=== PATIENT | female | born 1940 | race Caucasian/White ===

== ENCOUNTER 2018-03-28 21:13 | Inpatient (IN) | payer MEDICARE, OTHER ==
[2018-03-28 22:07] LABS: ADD MAN DIFF? NO
[2018-03-28 22:08] LABS: BASOPHILS % 0.2 % (0.0-2.0); EOSINOPHILS # 0.1 10^3/ul (0.0-0.5); EOSINOPHILS % 0.6 % (0.0-7.0); HEMATOCRIT 34.9 % (37.0-47.0); HEMOGLOBIN 11.8 g/dl (12.0-16.0); LYMPHOCYTES # 0.7 10^3/ul (0.8-2.9); MEAN CORPUSCULAR HEMOGLOBIN 33.1 pg (29.0-33.0); MEAN CORPUSCULAR HGB CONC 33.8 g/dl (32.0-37.0); MEAN PLATELET VOLUME 10.1 fl (7.4-10.4); MONOCYTE # 0.6 10^3/ul (0.3-0.9); MONOCYTES % 6.3 % (0.0-11.0); NEUTROPHIL # 7.6 10^3/ul (1.6-7.5); NEUTROPHILS % 84.3 % (39.0-77.0); PLATELET COUNT 193 10^3/UL (140-415); RED BLOOD COUNT 3.56 10^6/ul (4.20-5.40); RED CELL DISTRIBUTION WIDTH 12.1 % (11.5-14.5)
[2018-03-28 22:27] LABS: INR 1.13; PROTIME 14.6 Sec (11.9-14.9); PT RATIO 1.1
[2018-03-28 22:28] LABS: PARTIAL THROMBOPLASTIN TIME 32.1 Sec (23.0-35.0)
[2018-03-28 22:31] LABS: ALANINE AMINOTRANSFERASE 21 IU/L (13-69); ALBUMIN/GLOBULIN RATIO 1.29; ALKALINE PHOSPHATASE 68 IU/L (42-121); ANION GAP 10 (5-13); ASPARTATE AMINO TRANSFERASE 25 IU/L (15-46); BILIRUBIN,INDIRECT 0.3 mg/dl (0-1.1); BILIRUBIN,TOTAL 0.3 mg/dl (0.2-1.3); BLOOD UREA NITROGEN 26 mg/dl (7-20); CALCIUM 8.9 mg/dl (8.4-10.2); CARBON DIOXIDE 24 mmol/L (21-31); CHLORIDE 102 mmol/L (97-110); CREATININE 1.64 mg/dl (0.44-1.00); GLUCOSE 136 mg/dl (70-220); POTASSIUM 5.2 mmol/L (3.5-5.1); SODIUM 136 mmol/L (135-144); TOTAL PROTEIN 7.1 g/dl (6.1-8.1)
[2018-03-28 22:42] LABS: B-TYPE NATRIURETIC PEPTIDE 1200 PG/ML (0-450); TROPONIN-I 0.018 ng/ml (0.000-0.120)
[2018-03-29] MEDS ORDERED: ONDANSETRON 4 MG INJ IV
[2018-03-29 00:31] LABS: ADD UMIC YES; UR ASCORBIC ACID NEGATIVE (NEGATIVE); UR BACTERIA MODERATE /HPF (NONE SEEN); UR BILIRUBIN (Dip) NEGATIVE (NEGATIVE); UR BLOOD (Dip) 2+ mg/dL (NEGATIVE); UR CLARITY SLIGHTLY CLOUDY (CLEAR); UR COLOR YELLOW (YELLOW); UR GLUCOSE (Dip) NEGATIVE (NEGATIVE); UR KETONES (Dip) NEGATIVE (NEGATIVE); UR LEUKOCYTE ESTERASE (Dip) 1+ Leu/ul (NEGATIVE); UR MUCUS FEW /HPF (NONE SEEN); UR NITRITE (Dip) POSITIVE (NEGATIVE); UR RBC 2 /HPF (0-5); UR SPECIFIC GRAVITY (Dip) 1.017 (1.003-1.030); UR TOTAL PROTEIN (Dip) 1+ mg/dl (NEGATIVE); UR UROBILINOGEN (Dip) NEGATIVE (NEGATIVE); UR WBC 43 /HPF (0-5)
[2018-03-29] MEDS: ASPIRIN 81 MG TAB PO (01:06)
[2018-03-29] MEDS ORDERED: ACETAMINOPHEN 325 MG TAB PO ×2 (05:00)
[2018-03-29] MEDS: ALBUTEROL/IPRATROPIUM (NEB) 3 ML AMP HHN ×4 (05:21→20:09)
[2018-03-29] MEDS ORDERED: DEXTROSE 50% 50 ML SYRINGE IV ×2 (05:30)
[2018-03-29] MEDS ORDERED: GLUCAGON 1 MG INJ IM (05:30)
[2018-03-29] MEDS ORDERED: GLUCOSE GEL 15 GRAM TUBE PO ×2 (05:30)
[2018-03-29] MEDS ORDERED: GLUCOSE GEL 15 GRAM TUBE BUCCAL (05:30)
[2018-03-29] MEDS: SOD CHLORIDE 0.9% 1,000 ML IV (05:54)
[2018-03-29] MEDS: LEVOFLOXACIN 500 MG TAB PO (05:57)
[2018-03-29] MEDS: hydrALAzine 20 MG INJ IV ×2 (06:50→09:56)
[2018-03-29 07:15] LABS: ANION GAP 9 (5-13); BLOOD UREA NITROGEN 26 mg/dl (7-20); CARBON DIOXIDE 24 mmol/L (21-31); CHLORIDE 105 mmol/L (97-110); CREATININE 1.67 mg/dl (0.44-1.00); GLUCOSE 115 mg/dl (70-220); SODIUM 138 mmol/L (135-144)
[2018-03-29] MEDS: INSULIN ASPART [NOVOLOG] 3 ML PEN SC ×4 (07:55→20:55)
[2018-03-29] MEDS: METHYLPREDNISOLONE 40 MG INJ IV ×2 (08:35→21:00)
[2018-03-29] MEDS: ONDANSETRON 4 MG INJ IV (09:56)
[2018-03-29] MEDS: ENOXAPARIN 40 MG/0.4 ML SYG SC (16:33)
[2018-03-29 17:13] LABS: AADO2 Arterial 79.5 mmHg (7.0-24.0); Allen Test ACCEPTAB; Arterial Base Excess -3.7 mmol/L (-3.0-3); Arterial Blood Gas Oxygen Sat 96.1 mmHG (95.0-100.0); Arterial COHb 0.3 % (0.0-3.0); Arterial Fraction of Oxyhgb 95.5 % (93.0-99.0); Arterial HCO3 21.6 mmol/L (22.0-26.0); Arterial MetHb 0.3 % (0.0-1.5); Arterial pCO2 39.8 mmhg (35-45); MODE NASAL CANNULA; Site Right Radial
[2018-03-29] MEDS: METHYLPREDNISOLONE 125 MG INJ IV (21:29)
[2018-03-29] MEDS: FUROSEMIDE 40 MG INJ IV (21:29)
[2018-03-30] MEDS: ALBUTEROL/IPRATROPIUM (NEB) 3 ML AMP HHN ×4 (01:42→20:22)
[2018-03-30] MEDS: ACCU-CHEK XX (02:00)
[2018-03-30] MEDS: LEVOFLOXACIN 500MG/D5W (PMX) 100 ML IVPB (05:45)
[2018-03-30] MEDS: PANTOPRAZOLE 40 MG INJ IV (05:45)
[2018-03-30] MEDS: INSULIN ASPART [NOVOLOG] 3 ML PEN SC ×5 (08:11→21:39)
[2018-03-30] MEDS: FUROSEMIDE 40 MG INJ IV (08:23)
[2018-03-30] MEDS: METHYLPREDNISOLONE 40 MG INJ IV ×3 (08:24→21:28)
[2018-03-30] MEDS: ENOXAPARIN 40 MG/0.4 ML SYG SC (08:34)
[2018-03-30 09:06] LABS: ADD MAN DIFF? NO
[2018-03-30 09:11] LABS: BASOPHILS % 0.1 % (0.0-2.0); HEMATOCRIT 35.1 % (37.0-47.0); HEMOGLOBIN 11.6 g/dl (12.0-16.0); LYMPHOCYTES # 0.9 10^3/ul (0.8-2.9); LYMPHOCYTES % 6.3 % (15.0-51.0); MEAN CORPUSCULAR HEMOGLOBIN 32.9 pg (29.0-33.0); MEAN CORPUSCULAR VOLUME 99.4 fl (82.0-101.0); MEAN PLATELET VOLUME 10.5 fl (7.4-10.4); MONOCYTE # 0.2 10^3/ul (0.3-0.9); MONOCYTES % 1.1 % (0.0-11.0); NEUTROPHIL # 13.7 10^3/ul (1.6-7.5); PLATELET COUNT 191 10^3/UL (140-415); RED BLOOD COUNT 3.53 10^6/ul (4.20-5.40); RED CELL DISTRIBUTION WIDTH 12.4 % (11.5-14.5)
[2018-03-30 09:11] LABS: WHITE BLOOD COUNT 14.9 10^3/ul (4.8-10.8)
[2018-03-30 09:39] LABS: ANION GAP 12 (5-13); BLOOD UREA NITROGEN 41 mg/dl (7-20); CALCIUM 8.8 mg/dl (8.4-10.2); CARBON DIOXIDE 21 mmol/L (21-31); CHLORIDE 103 mmol/L (97-110); CREATININE 2.12 mg/dl (0.44-1.00); GLUCOSE 301 mg/dl (70-220); SODIUM 136 mmol/L (135-144)
[2018-03-30 09:43] LABS: POTASSIUM 5.2 mmol/L (3.5-5.1)
[2018-03-30] MEDS: NIFEdipine (XL) 60 MG TAB PO (13:59)
[2018-03-30] MEDS: SODIUM POLYSTYRENE 15 GM KIT (POWDER + SORBITOL) PO (18:12)
[2018-03-30] MEDS: INSULIN GLARGINE [LANTus] (100 UNITS/ML) SYG SC (20:48)
[2018-03-30] MEDS: NPH, HUMAN INSULIN ISOPHANE 3ML VIAL SC (21:38)
[2018-03-31] MEDS: ACCU-CHEK XX (02:15)
[2018-03-31] MEDS: ALBUTEROL/IPRATROPIUM (NEB) 3 ML AMP HHN ×4 (02:33→20:57)
[2018-03-31] MEDS: LEVOFLOXACIN 500MG/D5W (PMX) 100 ML IVPB (06:35)
[2018-03-31] MEDS: PANTOPRAZOLE 40 MG INJ IV (06:36)
[2018-03-31] MEDS: METHYLPREDNISOLONE 40 MG INJ IV ×3 (06:36→21:20)
[2018-03-31] MEDS: NPH, HUMAN INSULIN ISOPHANE 3ML VIAL SC ×3 (06:43→21:37)
[2018-03-31 06:57] LABS: ADD MAN DIFF? NO
[2018-03-31 07:02] LABS: WHITE BLOOD COUNT 14.8 10^3/ul (4.8-10.8)
[2018-03-31 07:02] LABS: BASOPHILS % 0.1 % (0.0-2.0); HEMATOCRIT 34.6 % (37.0-47.0); HEMOGLOBIN 11.6 g/dl (12.0-16.0); LYMPHOCYTES # 0.8 10^3/ul (0.8-2.9); LYMPHOCYTES % 5.7 % (15.0-51.0); MEAN CORPUSCULAR HEMOGLOBIN 32.6 pg (29.0-33.0); MEAN CORPUSCULAR HGB CONC 33.5 g/dl (32.0-37.0); MEAN CORPUSCULAR VOLUME 97.2 fl (82.0-101.0); MEAN PLATELET VOLUME 10.7 fl (7.4-10.4); MONOCYTE # 0.4 10^3/ul (0.3-0.9); NEUTROPHIL # 13.4 10^3/ul (1.6-7.5); NEUTROPHILS % 90.4 % (39.0-77.0); PLATELET COUNT 205 10^3/UL (140-415); RED BLOOD COUNT 3.56 10^6/ul (4.20-5.40); RED CELL DISTRIBUTION WIDTH 12.1 % (11.5-14.5)
[2018-03-31 07:28] LABS: ANION GAP 10 (5-13); BLOOD UREA NITROGEN 59 mg/dl (7-20); CALCIUM 8.7 mg/dl (8.4-10.2); CARBON DIOXIDE 23 mmol/L (21-31); CHLORIDE 101 mmol/L (97-110); CREATININE 2.27 mg/dl (0.44-1.00); GLUCOSE 389 mg/dl (70-220); POTASSIUM 5.1 mmol/L (3.5-5.1); SODIUM 134 mmol/L (135-144)
[2018-03-31] MEDS: INSULIN ASPART [NOVOLOG] 3 ML PEN SC ×4 (07:54→20:17)
[2018-03-31] MEDS: INSULIN GLARGINE [LANTus] (100 UNITS/ML) SYG SC ×2 (07:59→20:17)
[2018-03-31] MEDS: NIFEdipine (XL) 60 MG TAB PO (08:39)
[2018-03-31] MEDS: ENOXAPARIN 30 MG/0.3 ML SYG SC (09:44)
[2018-03-31] MEDS: AMIODARONE 200 MG TAB PO ×2 (12:31→20:08)
[2018-03-31] MEDS: APIXABAN 5 MG TABLET PO (20:08)
[2018-03-31] MEDS: BISACODYL (EC) 5 MG TAB PO (20:34)
[2018-04-01] MEDS: ALBUTEROL/IPRATROPIUM (NEB) 3 ML AMP HHN ×4 (02:03→21:33)
[2018-04-01] MEDS: ACCU-CHEK XX (02:05)
[2018-04-01] MEDS: PANTOPRAZOLE (EC) 40 MG TAB PO (05:06)
[2018-04-01] MEDS: LEVOFLOXACIN 500MG/D5W (PMX) 100 ML IVPB (05:06)
[2018-04-01] MEDS: METHYLPREDNISOLONE 40 MG INJ IV ×3 (05:07→21:45)
[2018-04-01] MEDS: NPH, HUMAN INSULIN ISOPHANE 3ML VIAL SC ×3 (05:17→21:51)
[2018-04-01 06:23] LABS: ADD MAN DIFF? NO
[2018-04-01 06:28] LABS: BASOPHILS % 0.2 % (0.0-2.0); HEMATOCRIT 35.8 % (37.0-47.0); HEMOGLOBIN 12.1 g/dl (12.0-16.0); LYMPHOCYTES # 0.8 10^3/ul (0.8-2.9); LYMPHOCYTES % 6.1 % (15.0-51.0); MEAN CORPUSCULAR HEMOGLOBIN 32.6 pg (29.0-33.0); MEAN CORPUSCULAR HGB CONC 33.8 g/dl (32.0-37.0); MEAN CORPUSCULAR VOLUME 96.5 fl (82.0-101.0); MEAN PLATELET VOLUME 10.9 fl (7.4-10.4); MONOCYTE # 0.4 10^3/ul (0.3-0.9); NEUTROPHIL # 11.8 10^3/ul (1.6-7.5); NEUTROPHILS % 88.9 % (39.0-77.0); PLATELET COUNT 209 10^3/UL (140-415); RED BLOOD COUNT 3.71 10^6/ul (4.20-5.40); RED CELL DISTRIBUTION WIDTH 12.1 % (11.5-14.5)
[2018-04-01 06:28] LABS: WHITE BLOOD COUNT 13.2 10^3/ul (4.8-10.8)
[2018-04-01 06:46] LABS: ANION GAP 11 (5-13); BLOOD UREA NITROGEN 75 mg/dl (7-20); CALCIUM 8.5 mg/dl (8.4-10.2); CARBON DIOXIDE 22 mmol/L (21-31); CHLORIDE 98 mmol/L (97-110); GLUCOSE 358 mg/dl (70-220); POTASSIUM 4.8 mmol/L (3.5-5.1); SODIUM 131 mmol/L (135-144)
[2018-04-01] MEDS: INSULIN ASPART [NOVOLOG] 3 ML PEN SC ×5 (08:09→23:37)
[2018-04-01] MEDS: AMIODARONE 200 MG TAB PO ×3 (09:07→20:57)
[2018-04-01] MEDS: APIXABAN 5 MG TABLET PO ×2 (09:07→20:57)
[2018-04-01] MEDS: NIFEdipine (XL) 60 MG TAB PO (10:08)
[2018-04-01] MEDS: INSULIN GLARGINE [LANTus] (100 UNITS/ML) SYG SC ×2 (10:12→21:07)
[2018-04-01 11:15] LABS: GLUCOSE 425 mg/dl (70-220)
[2018-04-01] MEDS: CEFTRIAXONE 1 GM/50 ML (PMX) 50 ML IVPB (13:26)
[2018-04-01 14:38] LABS: ADD UMIC YES; UR ASCORBIC ACID NEGATIVE (NEGATIVE); UR BACTERIA MANY /HPF (NONE SEEN); UR BILIRUBIN (Dip) NEGATIVE (NEGATIVE); UR BLOOD (Dip) NEGATIVE (NEGATIVE); UR CLARITY SLIGHTLY CLOUDY (CLEAR); UR COLOR YELLOW (YELLOW); UR GLUCOSE (Dip) 1+ mg/dL (NEGATIVE); UR KETONES (Dip) NEGATIVE (NEGATIVE); UR LEUKOCYTE ESTERASE (Dip) 1+ Leu/ul (NEGATIVE); UR MUCUS FEW /HPF (NONE SEEN); UR NITRITE (Dip) NEGATIVE (NEGATIVE); UR RBC 1 /HPF (0-5); UR SPECIFIC GRAVITY (Dip) 1.013 (1.003-1.030); UR TOTAL PROTEIN (Dip) NEGATIVE (NEGATIVE); UR UROBILINOGEN (Dip) NEGATIVE (NEGATIVE); UR WBC 19 /HPF (0-5)
[2018-04-01 15:12] LABS: SODIUM,URINE RANDOM < 13 mmol/L (30-90)
[2018-04-01] MEDS ORDERED: INSULIN GLARGINE [LANTus] (100 UNITS/ML) SYG SC (23:00)
[2018-04-02] MEDS: ACCU-CHEK XX (02:00)
[2018-04-02] MEDS ORDERED: LEVOFLOXACIN 250MG/D5W (PMX) 50 ML IVPB (06:00)
[2018-04-02] MEDS: METHYLPREDNISOLONE 40 MG INJ IV ×2 (06:06→21:02)
[2018-04-02 06:10] LABS: ADD MAN DIFF? NO
[2018-04-02] MEDS: NPH, HUMAN INSULIN ISOPHANE 3ML VIAL SC ×2 (06:13→20:55)
[2018-04-02 06:29] LABS: WHITE BLOOD COUNT 10.2 10^3/ul (4.8-10.8)
[2018-04-02 06:29] LABS: BASOPHILS % 0.2 % (0.0-2.0); HEMATOCRIT 35.2 % (37.0-47.0); HEMOGLOBIN 12.2 g/dl (12.0-16.0); LYMPHOCYTES # 0.8 10^3/ul (0.8-2.9); LYMPHOCYTES % 8.1 % (15.0-51.0); MEAN CORPUSCULAR HEMOGLOBIN 33.1 pg (29.0-33.0); MEAN CORPUSCULAR HGB CONC 34.7 g/dl (32.0-37.0); MEAN CORPUSCULAR VOLUME 95.4 fl (82.0-101.0); MEAN PLATELET VOLUME 10.7 fl (7.4-10.4); MONOCYTE # 0.5 10^3/ul (0.3-0.9); MONOCYTES % 5.1 % (0.0-11.0); NEUTROPHIL # 8.5 10^3/ul (1.6-7.5); NEUTROPHILS % 83.3 % (39.0-77.0); PLATELET COUNT 226 10^3/UL (140-415); RED BLOOD COUNT 3.69 10^6/ul (4.20-5.40); RED CELL DISTRIBUTION WIDTH 11.9 % (11.5-14.5)
[2018-04-02 07:02] LABS: ANION GAP 11 (5-13); BLOOD UREA NITROGEN 89 mg/dl (7-20); CALCIUM 8.6 mg/dl (8.4-10.2); CARBON DIOXIDE 24 mmol/L (21-31); CHLORIDE 97 mmol/L (97-110); CREATININE 3.18 mg/dl (0.44-1.00); GLUCOSE 263 mg/dl (70-220); MAGNESIUM 2.6 mg/dl (1.7-2.5); POTASSIUM 5.1 mmol/L (3.5-5.1); SODIUM 132 mmol/L (135-144)
[2018-04-02 07:02] LABS: PHOSPHORUS 4.9 mg/dl (2.5-4.9)
[2018-04-02] MEDS: NIFEdipine (XL) 60 MG TAB PO (08:12)
[2018-04-02] MEDS: AMIODARONE 200 MG TAB PO ×3 (08:12→21:04)
[2018-04-02] MEDS: APIXABAN 5 MG TABLET PO ×2 (08:13→21:04)
[2018-04-02] MEDS: INSULIN ASPART [NOVOLOG] 3 ML PEN SC ×4 (08:19→20:55)
[2018-04-02] MEDS: INSULIN GLARGINE [LANTus] (100 UNITS/ML) SYG SC ×2 (08:29→20:56)
[2018-04-02] MEDS: ALBUTEROL/IPRATROPIUM (NEB) 3 ML AMP HHN ×3 (08:35→20:02)
[2018-04-02] MEDS: CEFTRIAXONE 1 GM/50 ML (PMX) 50 ML IVPB (12:17)
[2018-04-02] MEDS: SOD CHLORIDE 0.9% 1,000 ML IV (12:17)
[2018-04-03] MEDS: ALBUTEROL/IPRATROPIUM (NEB) 3 ML AMP HHN ×4 (02:00→20:51)
[2018-04-03] MEDS: ACCU-CHEK XX (02:51)
[2018-04-03] MEDS: INSULIN ASPART [NOVOLOG] 3 ML PEN SC ×5 (02:59→20:30)
[2018-04-03] MEDS: SOD CHLORIDE 0.9% 1,000 ML IV (06:04)
[2018-04-03 06:05] LABS: ADD MAN DIFF? NO
[2018-04-03 06:07] LABS: BASOPHIL # 0.1 10^3/ul (0.0-0.1); BASOPHILS % 0.5 % (0.0-2.0); HEMATOCRIT 35.2 % (37.0-47.0); HEMOGLOBIN 12.1 g/dl (12.0-16.0); LYMPHOCYTES # 0.7 10^3/ul (0.8-2.9); LYMPHOCYTES % 6.7 % (15.0-51.0); MEAN CORPUSCULAR HGB CONC 34.4 g/dl (32.0-37.0); MEAN CORPUSCULAR VOLUME 95.9 fl (82.0-101.0); MEAN PLATELET VOLUME 10.5 fl (7.4-10.4); MONOCYTES % 8.8 % (0.0-11.0); NEUTROPHIL # 8.6 10^3/ul (1.6-7.5); NEUTROPHILS % 79.7 % (39.0-77.0); PLATELET COUNT 226 10^3/UL (140-415); RED BLOOD COUNT 3.67 10^6/ul (4.20-5.40); RED CELL DISTRIBUTION WIDTH 11.8 % (11.5-14.5)
[2018-04-03 06:07] LABS: WHITE BLOOD COUNT 10.8 10^3/ul (4.8-10.8)
[2018-04-03 06:34] LABS: MAGNESIUM 2.7 mg/dl (1.7-2.5)
[2018-04-03 06:34] LABS: PHOSPHORUS 5.2 mg/dl (2.5-4.9)
[2018-04-03 06:54] LABS: ANION GAP 17 (5-13); BLOOD UREA NITROGEN 102 mg/dl (7-20); CALCIUM 8.7 mg/dl (8.4-10.2); CARBON DIOXIDE 22 mmol/L (21-31); CHLORIDE 97 mmol/L (97-110); CREATININE 3.48 mg/dl (0.44-1.00); GLUCOSE 321 mg/dl (70-220); SODIUM 136 mmol/L (135-144)
[2018-04-03 07:16] LABS: POTASSIUM 5.3 mmol/L (3.5-5.1)
[2018-04-03] MEDS: METHYLPREDNISOLONE 40 MG INJ IV (08:16)
[2018-04-03] MEDS: NIFEdipine (XL) 60 MG TAB PO (08:16)
[2018-04-03] MEDS: APIXABAN 5 MG TABLET PO ×2 (08:16→20:18)
[2018-04-03] MEDS: AMIODARONE 200 MG TAB PO ×2 (08:17→20:18)
[2018-04-03] MEDS: INSULIN GLARGINE [LANTus] (100 UNITS/ML) SYG SC ×2 (08:24→20:30)
[2018-04-03] MEDS: NPH, HUMAN INSULIN ISOPHANE 3ML VIAL SC ×2 (08:26→20:25)
[2018-04-03] MEDS: hydrALAzine 20 MG INJ IV ×2 (11:17→17:03)
[2018-04-03] MEDS: CEFTRIAXONE 1 GM/50 ML (PMX) 50 ML IVPB (12:02)
[2018-04-03] MEDS: SODIUM POLYSTYRENE 15 GM KIT (POWDER + SORBITOL) PO (17:29)
[2018-04-04] MEDS: SOD CHLORIDE 0.9% 1,000 ML IV ×2 (02:00→12:31)
[2018-04-04] MEDS: ALBUTEROL/IPRATROPIUM (NEB) 3 ML AMP HHN ×4 (02:24→20:15)
[2018-04-04] MEDS: ACCU-CHEK XX (02:43)
[2018-04-04 06:48] LABS: WHITE BLOOD COUNT 13.2 10^3/ul (4.8-10.8)
[2018-04-04 06:48] LABS: ABNORMAL IP MESSAGE 1; HEMOGLOBIN 12.1 g/dl (12.0-16.0); MEAN CORPUSCULAR HEMOGLOBIN 32.5 pg (29.0-33.0); MEAN CORPUSCULAR HGB CONC 33.6 g/dl (32.0-37.0); MEAN CORPUSCULAR VOLUME 96.8 fl (82.0-101.0); MEAN PLATELET VOLUME 10.4 fl (7.4-10.4); PLATELET COUNT 259 10^3/UL (140-415); RED BLOOD COUNT 3.72 10^6/ul (4.20-5.40); RED CELL DISTRIBUTION WIDTH 12.1 % (11.5-14.5)
[2018-04-04 06:57] LABS: ADD MAN DIFF? YES; POSITIVE DIFF @See below
[2018-04-04 07:27] LABS: ANION GAP 14 (5-13); BLOOD UREA NITROGEN 112 mg/dl (7-20); CALCIUM 9.1 mg/dl (8.4-10.2); CARBON DIOXIDE 24 mmol/L (21-31); CHLORIDE 101 mmol/L (97-110); CREATININE 3.22 mg/dl (0.44-1.00); GLUCOSE 225 mg/dl (70-220); SODIUM 139 mmol/L (135-144)
[2018-04-04 08:00] LABS: ANISOCYTOSIS 1+ (0-0); BAND NEUTROPHILS #M 0.2 10^3/ul (0.0-0.6); BAND NEUTROPHILS % (M) 2 % (0-4); LYMPHOCYTES #M 1.3 10^3/ul (0.8-2.9); LYMPHOCYTES % (M) 10 % (15-51); METAMYELOCYTES #M 0.2 10^3/ul (0.0-0.0); METAMYELOCYTES %M 2 % (0-0); MONOCYTE #M 1.3 10^3/ul (0.3-0.9); MONOCYTES % (M) 10 % (0-11); MYELOCYTES #M 0.2 10^3/ul (0.0-0.0); MYELOCYTES % (M) 2 % (0-0); PLATELET ESTIMATE NORMAL; POLYCHROMASIA 1+ (0-0); REACTIVE LYMPHOCYTES #M 0.2 10^3/ul (0.0-0.0); REACTIVE LYMPHOCYTES% (M) 2 % (0-0); SEG NEUT #M 9.5 10^3/ul (1.6-7.5); SEGMENTED NEUTROPHILS (M) % 72 % (39-77); SMUDGE%M 3 % (0-0)
[2018-04-04] MEDS: INSULIN ASPART [NOVOLOG] 3 ML PEN SC ×4 (08:06→21:14)
[2018-04-04] MEDS: NIFEdipine (XL) 60 MG TAB PO (08:13)
[2018-04-04] MEDS: predniSONE 10 MG TAB PO (08:14)
[2018-04-04] MEDS: AMIODARONE 200 MG TAB PO ×2 (08:14→20:24)
[2018-04-04] MEDS: APIXABAN 5 MG TABLET PO ×2 (08:14→20:23)
[2018-04-04] MEDS: NPH, HUMAN INSULIN ISOPHANE 3ML VIAL SC ×2 (08:17→22:26)
[2018-04-04] MEDS: INSULIN GLARGINE [LANTus] (100 UNITS/ML) SYG SC ×2 (08:18→21:14)
[2018-04-04] MEDS: CEFTRIAXONE 1 GM/50 ML (PMX) 50 ML IVPB (12:24)
[2018-04-04] MEDS: hydrALAzine 20 MG INJ IV (12:25)
[2018-04-04] MEDS: LINAGLIPTIN 5 MG TABLET PO (12:46)
[2018-04-04] MEDS: METHYLPREDNISOLONE 40 MG INJ IV (17:03)
[2018-04-05] MEDS: ALBUTEROL/IPRATROPIUM (NEB) 3 ML AMP HHN ×3 (01:12→19:49)
[2018-04-05] MEDS: ACCU-CHEK XX (02:00)
[2018-04-05 06:53] LABS: WHITE BLOOD COUNT 10.4 10^3/ul (4.8-10.8)
[2018-04-05 06:53] LABS: ABNORMAL IP MESSAGE 1; HEMATOCRIT 33.8 % (37.0-47.0); HEMOGLOBIN 11.4 g/dl (12.0-16.0); MEAN CORPUSCULAR HEMOGLOBIN 32.5 pg (29.0-33.0); MEAN CORPUSCULAR HGB CONC 33.7 g/dl (32.0-37.0); MEAN CORPUSCULAR VOLUME 96.3 fl (82.0-101.0); MEAN PLATELET VOLUME 10.5 fl (7.4-10.4); PLATELET COUNT 226 10^3/UL (140-415); RED BLOOD COUNT 3.51 10^6/ul (4.20-5.40); RED CELL DISTRIBUTION WIDTH 12.4 % (11.5-14.5)
[2018-04-05 07:10] LABS: ADD MAN DIFF? YES; POSITIVE DIFF @See below
[2018-04-05 07:19] LABS: ANION GAP 10 (5-13); BLOOD UREA NITROGEN 97 mg/dl (7-20); CALCIUM 8.9 mg/dl (8.4-10.2); CARBON DIOXIDE 25 mmol/L (21-31); CHLORIDE 104 mmol/L (97-110); CREATININE 2.43 mg/dl (0.44-1.00); GLUCOSE 278 mg/dl (70-220); POTASSIUM 5.3 mmol/L (3.5-5.1); SODIUM 139 mmol/L (135-144)
[2018-04-05] MEDS: INSULIN GLARGINE [LANTus] (100 UNITS/ML) SYG SC ×2 (08:07→21:25)
[2018-04-05] MEDS: INSULIN ASPART [NOVOLOG] 3 ML PEN SC ×5 (08:07→17:27)
[2018-04-05] MEDS: APIXABAN 5 MG TABLET PO ×2 (08:40→21:18)
[2018-04-05] MEDS: predniSONE 10 MG TAB PO (08:40)
[2018-04-05] MEDS: LINAGLIPTIN 5 MG TABLET PO (08:41)
[2018-04-05] MEDS: NIFEdipine (XL) 60 MG TAB PO (08:41)
[2018-04-05] MEDS: AMIODARONE 200 MG TAB PO ×2 (08:41→21:33)
[2018-04-05 09:16] LABS: ANISOCYTOSIS 1+ (0-0); BAND NEUTROPHILS #M 0.2 10^3/ul (0.0-0.6); BAND NEUTROPHILS % (M) 2 % (0-4); LYMPHOCYTES #M 0.5 10^3/ul (0.8-2.9); LYMPHOCYTES % (M) 5 % (15-51); METAMYELOCYTES #M 0.1 10^3/ul (0.0-0.0); METAMYELOCYTES %M 1 % (0-0); MONOCYTE #M 0.2 10^3/ul (0.3-0.9); MONOCYTES % (M) 2 % (0-11); MYELOCYTES #M 0.7 10^3/ul (0.0-0.0); MYELOCYTES % (M) 7 % (0-0); PLATELET ESTIMATE NORMAL; POIKILOCYTOSIS 1+ (0-0); POLYCHROMASIA 1+ (0-0); PROMYELOCYTES #M 0.1 10^3/ul (0-0); PROMYELOCYTES % (M) 1 % (0-0); SEG NEUT #M 8.5 10^3/ul (1.6-7.5); SEGMENTED NEUTROPHILS (M) % 82 % (39-77); SMUDGE%M 4 % (0-0)
[2018-04-05] MEDS: CEFTRIAXONE 1 GM/50 ML (PMX) 50 ML IVPB (11:53)
[2018-04-05] MEDS: SODIUM POLYSTYRENE 15 GM KIT (POWDER + SORBITOL) PO (15:29)
[2018-04-06] MEDS: INSULIN ASPART [NOVOLOG] 3 ML PEN SC ×8 (01:06→20:53)
[2018-04-06] MEDS: ALBUTEROL/IPRATROPIUM (NEB) 3 ML AMP HHN ×4 (01:42→20:56)
[2018-04-06] MEDS: ACCU-CHEK XX (02:00)
[2018-04-06 06:18] LABS: ABNORMAL IP MESSAGE 1; HEMATOCRIT 33.7 % (37.0-47.0); HEMOGLOBIN 11.3 g/dl (12.0-16.0); MEAN CORPUSCULAR HEMOGLOBIN 32.7 pg (29.0-33.0); MEAN CORPUSCULAR HGB CONC 33.5 g/dl (32.0-37.0); MEAN CORPUSCULAR VOLUME 97.4 fl (82.0-101.0); MEAN PLATELET VOLUME 10.3 fl (7.4-10.4); PLATELET COUNT 225 10^3/UL (140-415); RED BLOOD COUNT 3.46 10^6/ul (4.20-5.40); RED CELL DISTRIBUTION WIDTH 12.5 % (11.5-14.5)
[2018-04-06 06:42] LABS: ANION GAP 13 (5-13); BLOOD UREA NITROGEN 93 mg/dl (7-20); CALCIUM 8.9 mg/dl (8.4-10.2); CARBON DIOXIDE 27 mmol/L (21-31); CHLORIDE 103 mmol/L (97-110); CREATININE 2.25 mg/dl (0.44-1.00); GLUCOSE 174 mg/dl (70-220); POTASSIUM 4.3 mmol/L (3.5-5.1); SODIUM 143 mmol/L (135-144)
[2018-04-06 06:46] LABS: POSITIVE DIFF @See below
[2018-04-06 06:47] LABS: ADD MAN DIFF? YES
[2018-04-06] MEDS: predniSONE 10 MG TAB PO (08:08)
[2018-04-06] MEDS: APIXABAN 5 MG TABLET PO ×2 (08:08→20:47)
[2018-04-06] MEDS: LINAGLIPTIN 5 MG TABLET PO (08:08)
[2018-04-06] MEDS: NIFEdipine (XL) 60 MG TAB PO (08:09)
[2018-04-06] MEDS: AMIODARONE 200 MG TAB PO ×2 (08:09→20:47)
[2018-04-06] MEDS: INSULIN GLARGINE [LANTus] (100 UNITS/ML) SYG SC ×2 (08:22→20:00)
[2018-04-06 09:56] LABS: BAND NEUTROPHILS #M 0.1 10^3/ul (0.0-0.6); BAND NEUTROPHILS % (M) 1 % (0-4); LYMPHOCYTES #M 1.9 10^3/ul (0.8-2.9); LYMPHOCYTES % (M) 16 % (15-51); METAMYELOCYTES #M 0.2 10^3/ul (0.0-0.0); METAMYELOCYTES %M 2 % (0-0); MONOCYTE #M 0.6 10^3/ul (0.3-0.9); MONOCYTES % (M) 5 % (0-11); MYELOCYTES #M 0.1 10^3/ul (0.0-0.0); MYELOCYTES % (M) 1 % (0-0); PLATELET ESTIMATE NORMAL; POLYCHROMASIA 1+ (0-0); PROMYELOCYTES #M 0.1 10^3/ul (0-0); PROMYELOCYTES % (M) 1 % (0-0); SEG NEUT #M 8.9 10^3/ul (1.6-7.5); SEGMENTED NEUTROPHILS (M) % 74 % (39-77); SMUDGE%M 8 % (0-0)
[2018-04-06] MEDS: CEFTRIAXONE 1 GM/50 ML (PMX) 50 ML IVPB (12:23)
[2018-04-07] MEDS: ACCU-CHEK XX (02:00)
[2018-04-07] MEDS: ALBUTEROL/IPRATROPIUM (NEB) 3 ML AMP HHN ×3 (02:37→14:00)
[2018-04-07 06:50] LABS: ADD MAN DIFF? NO
[2018-04-07 06:54] LABS: BASOPHIL # 0.1 10^3/ul (0.0-0.1); BASOPHILS % 0.4 % (0.0-2.0); EOSINOPHILS # 0.1 10^3/ul (0.0-0.5); EOSINOPHILS % 0.4 % (0.0-7.0); HEMATOCRIT 33.4 % (37.0-47.0); LYMPHOCYTES # 1.6 10^3/ul (0.8-2.9); MEAN CORPUSCULAR HEMOGLOBIN 32.3 pg (29.0-33.0); MEAN CORPUSCULAR HGB CONC 32.9 g/dl (32.0-37.0); MEAN CORPUSCULAR VOLUME 97.9 fl (82.0-101.0); MEAN PLATELET VOLUME 10.4 fl (7.4-10.4); MONOCYTE # 1.2 10^3/ul (0.3-0.9); MONOCYTES % 8.5 % (0.0-11.0); NEUTROPHIL # 10.5 10^3/ul (1.6-7.5); NEUTROPHILS % 74.7 % (39.0-77.0); PLATELET COUNT 221 10^3/UL (140-415); RED BLOOD COUNT 3.41 10^6/ul (4.20-5.40); RED CELL DISTRIBUTION WIDTH 12.8 % (11.5-14.5)
[2018-04-07 06:54] LABS: WHITE BLOOD COUNT 14.1 10^3/ul (4.8-10.8)
[2018-04-07 07:19] LABS: ANION GAP 13 (5-13); BLOOD UREA NITROGEN 88 mg/dl (7-20); CALCIUM 8.7 mg/dl (8.4-10.2); CARBON DIOXIDE 28 mmol/L (21-31); CHLORIDE 101 mmol/L (97-110); CREATININE 2.06 mg/dl (0.44-1.00); GLUCOSE 190 mg/dl (70-220); POTASSIUM 4.3 mmol/L (3.5-5.1); SODIUM 142 mmol/L (135-144)
[2018-04-07] MEDS: LINAGLIPTIN 5 MG TABLET PO (08:29)
[2018-04-07] MEDS: NIFEdipine (XL) 60 MG TAB PO (08:29)
[2018-04-07] MEDS: APIXABAN 5 MG TABLET PO ×2 (08:29→21:04)
[2018-04-07] MEDS: AMIODARONE 200 MG TAB PO ×2 (08:30→21:04)
[2018-04-07] MEDS: INSULIN GLARGINE [LANTus] (100 UNITS/ML) SYG SC ×2 (08:46→21:16)
[2018-04-07] MEDS: INSULIN ASPART [NOVOLOG] 3 ML PEN SC ×7 (08:47→21:00)
[2018-04-07] MEDS: CEFTRIAXONE 1 GM/50 ML (PMX) 50 ML IVPB (12:05)
[2018-04-08] MEDS: ACCU-CHEK XX (02:00)
[2018-04-08 06:45] LABS: ADD MAN DIFF? NO
[2018-04-08 06:48] LABS: BASOPHIL # 0.1 10^3/ul (0.0-0.1); BASOPHILS % 0.3 % (0.0-2.0); EOSINOPHILS # 0.3 10^3/ul (0.0-0.5); EOSINOPHILS % 1.9 % (0.0-7.0); HEMATOCRIT 34.5 % (37.0-47.0); HEMOGLOBIN 11.4 g/dl (12.0-16.0); LYMPHOCYTES # 1.6 10^3/ul (0.8-2.9); LYMPHOCYTES % 10.9 % (15.0-51.0); MEAN CORPUSCULAR HEMOGLOBIN 32.3 pg (29.0-33.0); MEAN CORPUSCULAR VOLUME 97.7 fl (82.0-101.0); MEAN PLATELET VOLUME 10.5 fl (7.4-10.4); MONOCYTES % 7.2 % (0.0-11.0); NEUTROPHIL # 10.9 10^3/ul (1.6-7.5); NEUTROPHILS % 75.2 % (39.0-77.0); PLATELET COUNT 214 10^3/UL (140-415); RED BLOOD COUNT 3.53 10^6/ul (4.20-5.40); RED CELL DISTRIBUTION WIDTH 12.7 % (11.5-14.5)
[2018-04-08 06:48] LABS: WHITE BLOOD COUNT 14.5 10^3/ul (4.8-10.8)
[2018-04-08 07:11] LABS: ANION GAP 6 (5-13); BLOOD UREA NITROGEN 74 mg/dl (7-20); CARBON DIOXIDE 29 mmol/L (21-31); CHLORIDE 108 mmol/L (97-110); CREATININE 1.92 mg/dl (0.44-1.00); GLUCOSE 71 mg/dl (70-220); POTASSIUM 3.7 mmol/L (3.5-5.1); SODIUM 143 mmol/L (135-144)
[2018-04-08] MEDS: INSULIN ASPART [NOVOLOG] 3 ML PEN SC ×4 (07:55→11:59)
[2018-04-08] MEDS: APIXABAN 5 MG TABLET PO (08:13)
[2018-04-08] MEDS: LINAGLIPTIN 5 MG TABLET PO (08:14)
[2018-04-08] MEDS: NIFEdipine (XL) 60 MG TAB PO (08:15)
[2018-04-08] MEDS: AMIODARONE 200 MG TAB PO (08:15)
[2018-04-08] MEDS: INSULIN GLARGINE [LANTus] (100 UNITS/ML) SYG SC (08:33)
[2018-04-08] MEDS: CEFTRIAXONE 1 GM/50 ML (PMX) 50 ML IVPB (11:56)
[2018-04-08] MEDS ORDERED: METOPROLOL 25 MG TAB PO (21:00)
== END 2018-04-08 19:52 | disposition home or self-care (01) | DRG 291 ==
LOC: TEL 23:34 → E/R 21:13 → TEL 03-29 03:26
DX: I13.0 Hypertensive heart and chronic kidney disease with heart failure and stage 1 through stage 4 chronic kidney disease, or unspecified chronic kidney disease (principal); I50.33 Acute on chronic diastolic (congestive) heart failure; N17.9 Acute kidney failure, unspecified; Z68.42 Body mass index [BMI] 45.0-49.9, adult; N39.0 Urinary tract infection, site not specified; E11.22 Type 2 diabetes mellitus with diabetic chronic kidney disease; N18.9 Chronic kidney disease, unspecified; R03.0 Elevated blood-pressure reading, without diagnosis of hypertension; E66.01 Morbid (severe) obesity due to excess calories; I48.0 Paroxysmal atrial fibrillation; D53.9 Nutritional anemia, unspecified; I48.91 Unspecified atrial fibrillation; M10.9 Gout, unspecified; B02.9 Zoster without complications; J45.909 Unspecified asthma, uncomplicated; Z79.4 Long term (current) use of insulin
CPT/HCPCS: 36415; 36600; 70450; 71045; 80048; 80053; 81001; 82803; 82947; 82962; 83036; 83735; 83880; 84100; 84300; 84484; 85025; 85610; 85730; 93005; 93306; 94640; 94664; 97110; 97116; 97161; 97530; 99285-25

== ENCOUNTER 2018-05-06 19:14 | Inpatient (IN) | payer MEDICARE, OTHER ==
[2018-05-06 19:43] LABS: ADD MAN DIFF? NO
[2018-05-06 19:46] LABS: BASOPHILS % 0.6 % (0.0-2.0); EOSINOPHILS # 0.2 10^3/ul (0.0-0.5); EOSINOPHILS % 2.3 % (0.0-7.0); HEMATOCRIT 34.4 % (37.0-47.0); HEMOGLOBIN 11.2 g/dl (12.0-16.0); LYMPHOCYTES # 1.3 10^3/ul (0.8-2.9); LYMPHOCYTES % 19.8 % (15.0-51.0); MEAN CORPUSCULAR HEMOGLOBIN 31.7 pg (29.0-33.0); MEAN CORPUSCULAR HGB CONC 32.6 g/dl (32.0-37.0); MEAN CORPUSCULAR VOLUME 97.5 fl (82.0-101.0); MEAN PLATELET VOLUME 9.7 fl (7.4-10.4); MONOCYTE # 0.6 10^3/ul (0.3-0.9); MONOCYTES % 9.5 % (0.0-11.0); NEUTROPHIL # 4.3 10^3/ul (1.6-7.5); NEUTROPHILS % 65.3 % (39.0-77.0); PLATELET COUNT 237 10^3/UL (140-415); RED BLOOD COUNT 3.53 10^6/ul (4.20-5.40); RED CELL DISTRIBUTION WIDTH 13.1 % (11.5-14.5)
[2018-05-06 19:46] LABS: WHITE BLOOD COUNT 6.5 10^3/ul (4.8-10.8)
[2018-05-06 20:08] LABS: ANION GAP 12 (5-13); BLOOD UREA NITROGEN 60 mg/dl (7-20); CARBON DIOXIDE 32 mmol/L (21-31); CHLORIDE 93 mmol/L (97-110); CREATININE 4.22 mg/dl (0.44-1.00); GLUCOSE 313 mg/dl (70-220); POTASSIUM 3.4 mmol/L (3.5-5.1); SODIUM 137 mmol/L (135-144)
[2018-05-06 20:56] LABS: ADD UMIC NO; UR ASCORBIC ACID NEGATIVE (NEGATIVE); UR BILIRUBIN (Dip) NEGATIVE (NEGATIVE); UR BLOOD (Dip) NEGATIVE (NEGATIVE); UR CLARITY CLEAR (CLEAR); UR COLOR YELLOW (YELLOW); UR GLUCOSE (Dip) NEGATIVE (NEGATIVE); UR KETONES (Dip) NEGATIVE (NEGATIVE); UR LEUKOCYTE ESTERASE (Dip) NEGATIVE Leu/ul (NEGATIVE); UR NITRITE (Dip) NEGATIVE (NEGATIVE); UR SPECIFIC GRAVITY (Dip) 1.011 (1.003-1.030); UR TOTAL PROTEIN (Dip) NEGATIVE (NEGATIVE); UR UROBILINOGEN (Dip) NEGATIVE (NEGATIVE)
[2018-05-06] MEDS ORDERED: ACETAMINOPHEN 325 MG TAB PO (21:30)
[2018-05-06] MEDS ORDERED: ONDANSETRON 4 MG INJ IV (21:30)
[2018-05-07] MEDS: SOD CHLORIDE 0.45% 1,000 ML IV ×2 (01:23→18:37)
[2018-05-07] MEDS ORDERED: GLUCAGON 1 MG INJ IM (01:30)
[2018-05-07] MEDS ORDERED: GLUCOSE GEL 15 GRAM TUBE PO ×2 (01:30)
[2018-05-07] MEDS ORDERED: GLUCOSE GEL 15 GRAM TUBE BUCCAL (01:30)
[2018-05-07] MEDS ORDERED: DEXTROSE 50% 50 ML SYRINGE IV ×2 (01:30)
[2018-05-07] MEDS: ACCU-CHEK XX (02:00)
[2018-05-07 05:41] LABS: ANION GAP 12 (5-13); BLOOD UREA NITROGEN 56 mg/dl (7-20); CALCIUM 8.9 mg/dl (8.4-10.2); CARBON DIOXIDE 35 mmol/L (21-31); CHLORIDE 93 mmol/L (97-110); CREATININE 4.19 mg/dl (0.44-1.00); GLUCOSE 155 mg/dl (70-220); SODIUM 140 mmol/L (135-144)
[2018-05-07 05:43] LABS: POTASSIUM 2.9 mmol/L (3.5-5.1)
[2018-05-07 05:47] LABS: HEMOGLOBIN A1C 6.5 % (0-5.9)
[2018-05-07] MEDS: POTASSIUM CHLORIDE (SR) 20 MEQ TAB PO (06:40)
[2018-05-07] MEDS: ALLOPURINOL 100 MG TAB PO (09:00)
[2018-05-07] MEDS: FUROSEMIDE 40 MG TAB PO (09:00)
[2018-05-07] MEDS: LEVOTHYROXINE 75 MCG TAB PO (09:01)
[2018-05-07] MEDS: LOSARTAN 50 MG TAB PO (09:01)
[2018-05-07] MEDS: ENOXAPARIN 30 MG/0.3 ML SYG SC (09:03)
[2018-05-07] MEDS: INSULIN ASPART [NOVOLOG] 3 ML PEN SC ×4 (09:04→21:33)
[2018-05-07] MEDS: 1/2 NS + KCL 20 MEQ 1,000 ML IV (14:31)
[2018-05-07 14:49] LABS: ANION GAP 10 (5-13); BLOOD UREA NITROGEN 56 mg/dl (7-20); CALCIUM 8.9 mg/dl (8.4-10.2); CARBON DIOXIDE 32 mmol/L (21-31); CHLORIDE 95 mmol/L (97-110); CREATININE 3.87 mg/dl (0.44-1.00); GLUCOSE 213 mg/dl (70-220); POTASSIUM 3.5 mmol/L (3.5-5.1); SODIUM 137 mmol/L (135-144)
[2018-05-07] MEDS: LATANOPROST 0.005% 2.5 ML OPH BOTH EYES (21:31)
[2018-05-07] MEDS: NYSTATIN 30 GM POWDER BTL TOP (21:31)
[2018-05-08 01:52] LABS: CREATININE,URINE RANDOM 135.16 mg/dl (20-320); PROTEIN/CREAT RATIO 0.07 RATIO
[2018-05-08 01:52] LABS: SODIUM,URINE RANDOM 75 mmol/L (30-90)
[2018-05-08] MEDS: ACCU-CHEK XX (01:57)
[2018-05-08 05:11] LABS: ADD MAN DIFF? NO
[2018-05-08 05:20] LABS: WHITE BLOOD COUNT 5.4 10^3/ul (4.8-10.8)
[2018-05-08 05:20] LABS: BASOPHIL # 0.1 10^3/ul (0.0-0.1); BASOPHILS % 1.1 % (0.0-2.0); EOSINOPHILS # 0.2 10^3/ul (0.0-0.5); EOSINOPHILS % 3.7 % (0.0-7.0); HEMATOCRIT 31.8 % (37.0-47.0); HEMOGLOBIN 10.2 g/dl (12.0-16.0); LYMPHOCYTES # 1.7 10^3/ul (0.8-2.9); LYMPHOCYTES % 31.7 % (15.0-51.0); MEAN CORPUSCULAR HEMOGLOBIN 31.3 pg (29.0-33.0); MEAN CORPUSCULAR HGB CONC 32.1 g/dl (32.0-37.0); MEAN CORPUSCULAR VOLUME 97.5 fl (82.0-101.0); MEAN PLATELET VOLUME 9.9 fl (7.4-10.4); MONOCYTE # 0.5 10^3/ul (0.3-0.9); MONOCYTES % 9.5 % (0.0-11.0); NEUTROPHIL # 2.7 10^3/ul (1.6-7.5); NEUTROPHILS % 50.8 % (39.0-77.0); PLATELET COUNT 230 10^3/UL (140-415); RED BLOOD COUNT 3.26 10^6/ul (4.20-5.40); RED CELL DISTRIBUTION WIDTH 13.2 % (11.5-14.5)
[2018-05-08 05:34] LABS: CHOLESTEROL 150 mg/dl (100-200)
[2018-05-08 05:34] LABS: CHOL/HDL RATIO 2.9 RATIO; HDL CHOLESTEROL 51 mg/dl (33-92); LDL CHOLESTEROL,CALCULATED 68 mg/dl; TRIGLYCERIDES 156 mg/dl (0-149)
[2018-05-08 05:38] LABS: ANION GAP 8 (5-13); BLOOD UREA NITROGEN 54 mg/dl (7-20); CALCIUM 8.9 mg/dl (8.4-10.2); CARBON DIOXIDE 33 mmol/L (21-31); CHLORIDE 97 mmol/L (97-110); CREATININE 3.67 mg/dl (0.44-1.00); GLUCOSE 173 mg/dl (70-220); POTASSIUM 3.3 mmol/L (3.5-5.1); SODIUM 138 mmol/L (135-144)
[2018-05-08 05:43] LABS: B-TYPE NATRIURETIC PEPTIDE 694 PG/ML (0-450)
[2018-05-08] MEDS: LEVOTHYROXINE 75 MCG TAB PO (07:04)
[2018-05-08] MEDS: INSULIN ASPART [NOVOLOG] 3 ML PEN SC ×5 (09:02→20:17)
[2018-05-08] MEDS: ALLOPURINOL 100 MG TAB PO (09:03)
[2018-05-08] MEDS: ENOXAPARIN 30 MG/0.3 ML SYG SC (09:03)
[2018-05-08] MEDS: NYSTATIN 30 GM POWDER BTL TOP ×2 (09:03→20:19)
[2018-05-08] MEDS: POTASSIUM CHLORIDE (SR) 20 MEQ TAB PO (09:04)
[2018-05-08] MEDS: SOD CHLORIDE 0.45% 1,000 ML IV (17:52)
[2018-05-08] MEDS: LATANOPROST 0.005% 2.5 ML OPH BOTH EYES (20:22)
[2018-05-09] MEDS: ACCU-CHEK XX (02:12)
[2018-05-09 05:41] LABS: ALANINE AMINOTRANSFERASE 25 IU/L (13-69); ALBUMIN 3.2 g/dl (3.3-4.9); ALBUMIN/GLOBULIN RATIO 1.18; ALKALINE PHOSPHATASE 88 IU/L (42-121); ANION GAP 8 (5-13); ASPARTATE AMINO TRANSFERASE 28 IU/L (15-46); BILIRUBIN,INDIRECT 0.2 mg/dl (0-1.1); BILIRUBIN,TOTAL 0.2 mg/dl (0.2-1.3); BLOOD UREA NITROGEN 55 mg/dl (7-20); CALCIUM 8.6 mg/dl (8.4-10.2); CARBON DIOXIDE 29 mmol/L (21-31); CHLORIDE 99 mmol/L (97-110); CREATININE 3.41 mg/dl (0.44-1.00); GLUCOSE 270 mg/dl (70-220); MAGNESIUM 2.5 mg/dl (1.7-2.5); POTASSIUM 3.7 mmol/L (3.5-5.1); SODIUM 136 mmol/L (135-144); TOTAL PROTEIN 5.9 g/dl (6.1-8.1)
[2018-05-09 05:45] LABS: B-TYPE NATRIURETIC PEPTIDE 446 PG/ML (0-450)
[2018-05-09] MEDS: LEVOTHYROXINE 100 MCG TAB PO (05:52)
[2018-05-09] MEDS: SOD CHLORIDE 0.45% 1,000 ML IV ×2 (06:01→18:00)
[2018-05-09] MEDS: ASPIRIN (EC) 81 MG TAB PO (08:48)
[2018-05-09] MEDS: LINAGLIPTIN 5 MG TABLET PO (08:49)
[2018-05-09] MEDS: ALLOPURINOL 100 MG TAB PO (08:49)
[2018-05-09] MEDS: INSULIN ASPART [NOVOLOG] 3 ML PEN SC ×7 (08:51→22:01)
[2018-05-09] MEDS: INSULIN GLARGINE [LANTus] (100 UNITS/ML) SYG SC (08:52)
[2018-05-09] MEDS: ENOXAPARIN 30 MG/0.3 ML SYG SC (08:53)
[2018-05-09] MEDS: NYSTATIN 30 GM POWDER BTL TOP ×2 (08:56→22:03)
[2018-05-09 11:32] LABS: HEMOGLOBIN A1C 6.7 % (0-5.9)
[2018-05-09] MEDS ORDERED: INSULIN GLARGINE [LANTus] (100 UNITS/ML) SYG SC (20:00)
[2018-05-09] MEDS: LATANOPROST 0.005% 2.5 ML OPH BOTH EYES (22:05)
[2018-05-10] MEDS: ACCU-CHEK XX (02:00)
[2018-05-10] MEDS: ALBUTEROL 0.083% (NEB) 2.5 MG/3 ML AMP HHN (03:22)
[2018-05-10 05:16] LABS: ADD MAN DIFF? NO
[2018-05-10 05:20] LABS: BASOPHILS % 0.8 % (0.0-2.0); EOSINOPHILS # 0.2 10^3/ul (0.0-0.5); EOSINOPHILS % 4.3 % (0.0-7.0); HEMATOCRIT 30.4 % (37.0-47.0); LYMPHOCYTES # 1.4 10^3/ul (0.8-2.9); LYMPHOCYTES % 28.2 % (15.0-51.0); MEAN CORPUSCULAR HEMOGLOBIN 32.2 pg (29.0-33.0); MEAN CORPUSCULAR HGB CONC 32.9 g/dl (32.0-37.0); MEAN CORPUSCULAR VOLUME 97.7 fl (82.0-101.0); MONOCYTE # 0.5 10^3/ul (0.3-0.9); MONOCYTES % 11.1 % (0.0-11.0); NEUTROPHIL # 2.6 10^3/ul (1.6-7.5); NEUTROPHILS % 52.9 % (39.0-77.0); PLATELET COUNT 195 10^3/UL (140-415); RED BLOOD COUNT 3.11 10^6/ul (4.20-5.40); RED CELL DISTRIBUTION WIDTH 12.9 % (11.5-14.5)
[2018-05-10 05:20] LABS: WHITE BLOOD COUNT 4.9 10^3/ul (4.8-10.8)
[2018-05-10 05:45] LABS: ANION GAP 7 (5-13); BLOOD UREA NITROGEN 48 mg/dl (7-20); CALCIUM 8.8 mg/dl (8.4-10.2); CARBON DIOXIDE 30 mmol/L (21-31); CHLORIDE 100 mmol/L (97-110); CREATININE 2.89 mg/dl (0.44-1.00); GLUCOSE 315 mg/dl (70-220); SODIUM 137 mmol/L (135-144)
[2018-05-10] MEDS: LEVOTHYROXINE 100 MCG TAB PO (05:51)
[2018-05-10] MEDS: LINAGLIPTIN 5 MG TABLET PO (09:16)
[2018-05-10] MEDS: ASPIRIN (EC) 81 MG TAB PO (09:16)
[2018-05-10] MEDS: ALLOPURINOL 100 MG TAB PO (09:16)
[2018-05-10] MEDS: NYSTATIN 30 GM POWDER BTL TOP ×2 (09:18→21:23)
[2018-05-10] MEDS: INSULIN GLARGINE [LANTus] (100 UNITS/ML) SYG SC (09:20)
[2018-05-10] MEDS: ENOXAPARIN 30 MG/0.3 ML SYG SC (09:20)
[2018-05-10] MEDS: INSULIN ASPART [NOVOLOG] 3 ML PEN SC ×7 (09:21→21:00)
[2018-05-10] MEDS: LATANOPROST 0.005% 2.5 ML OPH BOTH EYES (21:18)
[2018-05-11] MEDS: ACCU-CHEK XX (02:00)
[2018-05-11] MEDS: LEVOTHYROXINE 100 MCG TAB PO (05:32)
[2018-05-11] MEDS: NYSTATIN 30 GM POWDER BTL TOP ×2 (08:22→20:42)
[2018-05-11] MEDS: ENOXAPARIN 30 MG/0.3 ML SYG SC (08:23)
[2018-05-11] MEDS: INSULIN GLARGINE [LANTus] (100 UNITS/ML) SYG SC (08:24)
[2018-05-11] MEDS: INSULIN ASPART [NOVOLOG] 3 ML PEN SC ×7 (08:25→20:45)
[2018-05-11] MEDS: ALLOPURINOL 100 MG TAB PO (08:57)
[2018-05-11] MEDS: LINAGLIPTIN 5 MG TABLET PO (08:57)
[2018-05-11] MEDS: ASPIRIN (EC) 81 MG TAB PO (10:13)
[2018-05-11] MEDS: LATANOPROST 0.005% 2.5 ML OPH BOTH EYES (20:48)
[2018-05-12] MEDS: ACCU-CHEK XX (02:00)
[2018-05-12 05:31] LABS: ADD MAN DIFF? NO
[2018-05-12] MEDS: LEVOTHYROXINE 100 MCG TAB PO (05:32)
[2018-05-12 05:44] LABS: WHITE BLOOD COUNT 4.7 10^3/ul (4.8-10.8)
[2018-05-12 05:44] LABS: BASOPHIL # 0.1 10^3/ul (0.0-0.1); BASOPHILS % 1.1 % (0.0-2.0); EOSINOPHILS # 0.2 10^3/ul (0.0-0.5); EOSINOPHILS % 4.9 % (0.0-7.0); HEMATOCRIT 30.7 % (37.0-47.0); LYMPHOCYTES # 1.6 10^3/ul (0.8-2.9); LYMPHOCYTES % 34.2 % (15.0-51.0); MEAN CORPUSCULAR HEMOGLOBIN 31.6 pg (29.0-33.0); MEAN CORPUSCULAR HGB CONC 32.6 g/dl (32.0-37.0); MEAN CORPUSCULAR VOLUME 97.2 fl (82.0-101.0); MEAN PLATELET VOLUME 10.1 fl (7.4-10.4); MONOCYTE # 0.5 10^3/ul (0.3-0.9); MONOCYTES % 11.4 % (0.0-11.0); NEUTROPHIL # 2.2 10^3/ul (1.6-7.5); NEUTROPHILS % 46.5 % (39.0-77.0); PLATELET COUNT 175 10^3/UL (140-415); RED BLOOD COUNT 3.16 10^6/ul (4.20-5.40); RED CELL DISTRIBUTION WIDTH 13.2 % (11.5-14.5)
[2018-05-12 06:07] LABS: ANION GAP 7 (5-13); BLOOD UREA NITROGEN 35 mg/dl (7-20); CALCIUM 8.7 mg/dl (8.4-10.2); CARBON DIOXIDE 27 mmol/L (21-31); CHLORIDE 106 mmol/L (97-110); CREATININE 2.23 mg/dl (0.44-1.00); GLUCOSE 234 mg/dl (70-220); POTASSIUM 4.1 mmol/L (3.5-5.1); SODIUM 140 mmol/L (135-144)
[2018-05-12] MEDS: LINAGLIPTIN 5 MG TABLET PO (08:18)
[2018-05-12] MEDS: ASPIRIN (EC) 81 MG TAB PO (08:18)
[2018-05-12] MEDS: ALLOPURINOL 100 MG TAB PO (08:20)
[2018-05-12] MEDS: ENOXAPARIN 30 MG/0.3 ML SYG SC (08:23)
[2018-05-12] MEDS: INSULIN ASPART [NOVOLOG] 3 ML PEN SC ×7 (08:25→21:14)
[2018-05-12] MEDS: INSULIN GLARGINE [LANTus] (100 UNITS/ML) SYG SC (08:25)
[2018-05-12] MEDS: NYSTATIN 30 GM POWDER BTL TOP ×2 (08:26→21:08)
[2018-05-12] MEDS: FUROSEMIDE 40 MG INJ IV (13:00)
[2018-05-12] MEDS: LATANOPROST 0.005% 2.5 ML OPH BOTH EYES (21:08)
[2018-05-13] MEDS: ACCU-CHEK XX (02:00)
[2018-05-13 05:50] LABS: ANION GAP 8 (5-13); BLOOD UREA NITROGEN 33 mg/dl (7-20); CALCIUM 9.1 mg/dl (8.4-10.2); CARBON DIOXIDE 27 mmol/L (21-31); CHLORIDE 107 mmol/L (97-110); CREATININE 2.31 mg/dl (0.44-1.00); GLUCOSE 162 mg/dl (70-220); SODIUM 142 mmol/L (135-144)
[2018-05-13] MEDS: LEVOTHYROXINE 100 MCG TAB PO (06:26)
[2018-05-13] MEDS: LINAGLIPTIN 5 MG TABLET PO (08:40)
[2018-05-13] MEDS: NYSTATIN 30 GM POWDER BTL TOP (08:41)
[2018-05-13] MEDS: ASPIRIN (EC) 81 MG TAB PO (08:41)
[2018-05-13] MEDS: ALLOPURINOL 100 MG TAB PO (08:41)
[2018-05-13] MEDS: INSULIN ASPART [NOVOLOG] 3 ML PEN SC ×4 (08:46→12:51)
[2018-05-13] MEDS: INSULIN GLARGINE [LANTus] (100 UNITS/ML) SYG SC (08:46)
[2018-05-13] MEDS: ENOXAPARIN 30 MG/0.3 ML SYG SC (08:47)
== END 2018-05-13 17:35 | disposition home health service (06) | DRG 683 ==
LOC: E/R 19:14 → MS1 21:10
DX: N17.0 Acute kidney failure with tubular necrosis (principal); I13.0 Hypertensive heart and chronic kidney disease with heart failure and stage 1 through stage 4 chronic kidney disease, or unspecified chronic kidney disease; E87.3 Alkalosis; Z68.42 Body mass index [BMI] 45.0-49.9, adult; E66.2 Morbid (severe) obesity with alveolar hypoventilation; I50.32 Chronic diastolic (congestive) heart failure; E11.21 Type 2 diabetes mellitus with diabetic nephropathy; E11.22 Type 2 diabetes mellitus with diabetic chronic kidney disease; J44.9 Chronic obstructive pulmonary disease, unspecified; N18.3 Chronic kidney disease, stage 3 (moderate); J45.909 Unspecified asthma, uncomplicated; E87.6 Hypokalemia; E03.9 Hypothyroidism, unspecified; E78.5 Hyperlipidemia, unspecified; M10.9 Gout, unspecified; H40.9 Unspecified glaucoma; H26.9 Unspecified cataract; Z79.4 Long term (current) use of insulin; Z98.51 Tubal ligation status; Z85.828 Personal history of other malignant neoplasm of skin
CPT/HCPCS: 36415; 71045; 76775; 80048; 80053; 80061; 81003; 82570; 82962; 83036; 83735; 83880; 84300; 84443; 85025; 89190; 93005; 93970; 94664; 97162; 99285-25

== ENCOUNTER 2018-11-23 03:27 | Inpatient (IN) | payer MEDICARE, OTHER ==
[2018-11-23] MEDS ORDERED: ACETAMINOPHEN 325 MG TAB PO ×2 (05:30→09:00)
[2018-11-23] MEDS: CEFTRIAXONE 1 GM/50 ML (PMX) 50 ML IVPB ×2 (05:35→21:02)
[2018-11-23] MEDS ORDERED: NON-FORMULARY/PATIENT OWN MED (Simvastatin 10 MG) PO (09:00)
[2018-11-23] MEDS ORDERED: traMADol 50 MG TAB PO (09:00)
[2018-11-23] MEDS ORDERED: SPECIAL NON-STANDARD MEDICATION BOTH EYES (09:30)
[2018-11-23] MEDS ORDERED: DEXTROSE 50% 50 ML SYRINGE IV ×2 (09:30)
[2018-11-23] MEDS ORDERED: GLUCAGON 1 MG INJ IM (09:30)
[2018-11-23] MEDS ORDERED: GLUCOSE GEL 15 GRAM TUBE BUCCAL (09:30)
[2018-11-23] MEDS ORDERED: GLUCOSE GEL 15 GRAM TUBE PO ×2 (09:30)
[2018-11-23] MEDS: ALLOPURINOL 100 MG TAB PO (10:32)
[2018-11-23] MEDS: LINAGLIPTIN 5 MG TABLET PO (10:32)
[2018-11-23] MEDS: ASPIRIN (EC) 81 MG TAB PO (10:32)
[2018-11-23] MEDS: DOCUSATE SODIUM 100 MG CAP PO (10:32)
[2018-11-23] MEDS: SOD CHLORIDE 0.45% 1,000 ML IV (10:34)
[2018-11-23] MEDS: ENOXAPARIN 30 MG/0.3 ML SYG SC (10:39)
[2018-11-23] MEDS: ACCU-CHEK XX ×3 (12:27→20:00)
[2018-11-23] MEDS: ONDANSETRON 4 MG INJ IV (12:29)
[2018-11-23] MEDS: INSULIN ASPART [NOVOLOG] 3 ML PEN SC ×3 (12:31→20:56)
[2018-11-23] MEDS ORDERED: TRAVOPROST 0.004% 2.5 ML OPH BOTH EYES (21:00)
[2018-11-23] MEDS: ATORVASTATIN 10 MG TAB PO (21:03)
[2018-11-23] MEDS: LATANOPROST 0.005% 2.5 ML OPH BOTH EYES (21:08)
[2018-11-24] MEDS: ACCU-CHEK XX ×5 (01:53→21:00)
[2018-11-24] MEDS: SOD CHLORIDE 0.45% 1,000 ML IV ×2 (01:53→17:38)
[2018-11-24] MEDS: LEVOTHYROXINE 100 MCG TAB PO (05:18)
[2018-11-24] MEDS: INSULIN ASPART [NOVOLOG] 3 ML PEN SC ×4 (08:00→20:26)
[2018-11-24] MEDS ORDERED: SPECIAL NON-STANDARD MEDICATION BOTH EYES (09:00)
[2018-11-24] MEDS: ASPIRIN (EC) 81 MG TAB PO (09:56)
[2018-11-24] MEDS: DOCUSATE SODIUM 100 MG CAP PO (09:57)
[2018-11-24] MEDS: ALLOPURINOL 100 MG TAB PO (09:58)
[2018-11-24] MEDS: LINAGLIPTIN 5 MG TABLET PO (09:59)
[2018-11-24] MEDS: ENOXAPARIN 30 MG/0.3 ML SYG SC (10:01)
[2018-11-24] MEDS: CEFTRIAXONE 1 GM/50 ML (PMX) 50 ML IVPB (20:21)
[2018-11-24] MEDS: LATANOPROST 0.005% 2.5 ML OPH BOTH EYES (20:21)
[2018-11-24] MEDS: ATORVASTATIN 10 MG TAB PO (20:22)
[2018-11-25] MEDS: ACCU-CHEK XX ×5 (02:00→20:59)
[2018-11-25] MEDS: LEVOTHYROXINE 100 MCG TAB PO (05:49)
[2018-11-25] MEDS: LINAGLIPTIN 5 MG TABLET PO (08:26)
[2018-11-25] MEDS: DOCUSATE SODIUM 100 MG CAP PO (08:26)
[2018-11-25] MEDS: ASPIRIN (EC) 81 MG TAB PO (08:26)
[2018-11-25] MEDS: ALLOPURINOL 100 MG TAB PO (08:27)
[2018-11-25] MEDS: INSULIN ASPART [NOVOLOG] 3 ML PEN SC ×4 (08:31→20:57)
[2018-11-25] MEDS: ENOXAPARIN 30 MG/0.3 ML SYG SC (08:32)
[2018-11-25] MEDS: BISACODYL (EC) 5 MG TAB PO (08:45)
[2018-11-25] MEDS: SOD CHLORIDE 0.45% 1,000 ML IV (11:35)
[2018-11-25] MEDS: CEPHALEXIN 250 MG CAP PO (20:52)
[2018-11-25] MEDS: ATORVASTATIN 10 MG TAB PO (20:52)
[2018-11-25] MEDS: LATANOPROST 0.005% 2.5 ML OPH BOTH EYES (20:53)
[2018-11-26] MEDS: ACCU-CHEK XX ×5 (02:00→21:00)
[2018-11-26] MEDS: LEVOTHYROXINE 100 MCG TAB PO (06:43)
[2018-11-26] MEDS: ASPIRIN (EC) 81 MG TAB PO (08:16)
[2018-11-26] MEDS: DOCUSATE SODIUM 100 MG CAP PO (08:16)
[2018-11-26] MEDS: ENOXAPARIN 30 MG/0.3 ML SYG SC (08:16)
[2018-11-26] MEDS: INSULIN ASPART [NOVOLOG] 3 ML PEN SC ×4 (08:16→21:48)
[2018-11-26] MEDS: CEPHALEXIN 250 MG CAP PO ×2 (08:17→21:34)
[2018-11-26] MEDS: ALLOPURINOL 100 MG TAB PO (08:17)
[2018-11-26] MEDS: LINAGLIPTIN 5 MG TABLET PO (08:17)
[2018-11-26] MEDS: LATANOPROST 0.005% 2.5 ML OPH BOTH EYES (21:32)
[2018-11-26] MEDS: ATORVASTATIN 10 MG TAB PO (21:34)
[2018-11-27] MEDS: ACCU-CHEK XX ×5 (02:00→21:31)
[2018-11-27] MEDS: LEVOTHYROXINE 100 MCG TAB PO (05:16)
[2018-11-27] MEDS: ASPIRIN (EC) 81 MG TAB PO (08:39)
[2018-11-27] MEDS: LINAGLIPTIN 5 MG TABLET PO (08:39)
[2018-11-27] MEDS: DOCUSATE SODIUM 100 MG CAP PO (08:39)
[2018-11-27] MEDS: ALLOPURINOL 100 MG TAB PO (08:39)
[2018-11-27] MEDS: INSULIN ASPART [NOVOLOG] 3 ML PEN SC ×8 (09:00→21:00)
[2018-11-27] MEDS: ENOXAPARIN 30 MG/0.3 ML SYG SC (09:00)
[2018-11-27] MEDS: CEPHALEXIN 250 MG CAP PO ×2 (11:44→21:31)
[2018-11-27] MEDS ORDERED: ATORVASTATIN 10 MG TAB PO (21:00)
[2018-11-27] MEDS: ATORVASTATIN 10 MG TAB PO (21:32)
[2018-11-27] MEDS: LATANOPROST 0.005% 2.5 ML OPH BOTH EYES (22:40)
[2018-11-28] MEDS: ACCU-CHEK XX ×5 (02:00→21:01)
[2018-11-28] MEDS: LEVOTHYROXINE 100 MCG TAB PO (06:34)
[2018-11-28] MEDS: [UNRECOGNIZED DRUG - REMARK] XX ×3 (08:00→23:25)
[2018-11-28] MEDS: INSULIN ASPART [NOVOLOG] 3 ML PEN SC ×7 (08:50→21:01)
[2018-11-28] MEDS: CEPHALEXIN 250 MG CAP PO ×2 (09:27→20:45)
[2018-11-28] MEDS: LINAGLIPTIN 5 MG TABLET PO (09:27)
[2018-11-28] MEDS: ASPIRIN (EC) 81 MG TAB PO (09:28)
[2018-11-28] MEDS: ALLOPURINOL 100 MG TAB PO (09:28)
[2018-11-28] MEDS: DOCUSATE SODIUM 100 MG CAP PO (09:28)
[2018-11-28] MEDS: ENOXAPARIN 30 MG/0.3 ML SYG SC (09:45)
[2018-11-28] MEDS: LATANOPROST 0.005% 2.5 ML OPH BOTH EYES (20:45)
[2018-11-28] MEDS: ATORVASTATIN 10 MG TAB PO (20:46)
[2018-11-29] MEDS: ACCU-CHEK XX ×3 (02:42→11:20)
[2018-11-29] MEDS: LEVOTHYROXINE 100 MCG TAB PO (06:18)
[2018-11-29] MEDS: [UNRECOGNIZED DRUG - REMARK] XX (08:00)
[2018-11-29] MEDS: DOCUSATE SODIUM 100 MG CAP PO (08:35)
[2018-11-29] MEDS: CEPHALEXIN 250 MG CAP PO (08:35)
[2018-11-29] MEDS: LINAGLIPTIN 5 MG TABLET PO (08:35)
[2018-11-29] MEDS: ASPIRIN (EC) 81 MG TAB PO (08:35)
[2018-11-29] MEDS: ALLOPURINOL 100 MG TAB PO (08:36)
[2018-11-29] MEDS: ENOXAPARIN 30 MG/0.3 ML SYG SC (09:22)
[2018-11-29] MEDS: INSULIN ASPART [NOVOLOG] 3 ML PEN SC ×4 (09:23→12:25)
== END 2018-11-29 18:33 | disposition home health service (06) | DRG 689 ==
LOC: TEL 11-27 07:52 → E/R 03:27 → PP2 05:32
DX: N12 Tubulo-interstitial nephritis, not specified as acute or chronic (principal); I50.33 Acute on chronic diastolic (congestive) heart failure; I13.0 Hypertensive heart and chronic kidney disease with heart failure and stage 1 through stage 4 chronic kidney disease, or unspecified chronic kidney disease; Z68.42 Body mass index [BMI] 45.0-49.9, adult; B96.20 Unspecified Escherichia coli [E. coli] as the cause of diseases classified elsewhere; B95.2 Enterococcus as the cause of diseases classified elsewhere; E11.22 Type 2 diabetes mellitus with diabetic chronic kidney disease; N18.9 Chronic kidney disease, unspecified; E66.9 Obesity, unspecified; R29.6 Repeated falls; E03.9 Hypothyroidism, unspecified; J44.9 Chronic obstructive pulmonary disease, unspecified; E78.5 Hyperlipidemia, unspecified; E11.21 Type 2 diabetes mellitus with diabetic nephropathy; R00.1 Bradycardia, unspecified; D64.9 Anemia, unspecified
CPT/HCPCS: 70450; 71045; 80048; 80053; 80061; 81001; 82962; 83036; 83605; 83880; 84439; 84443; 84484; 85025; 87040-91; 87086; 93005; 93306; 97161; 99217; 99285-25; G0378